=== PATIENT | male | born 1975 | race Two or more races ===

== ENCOUNTER 2016-07-14 13:26 | Emergency (ER) | payer OTHER ==
[2016-07-14] MEDS ORDERED: IBUPROFEN 200 MG TABLET ONE (16:47)
[2016-07-14] MEDS ORDERED: DOXYCYCLINE HYCLATE 100 MG TABLET ONE (17:42)
--- NOTE | 2016-07-14 17:47 | RAD ---
CHEST - 2 VIEWS COMPARISON: None. HISTORY: Cough and fever. FINDINGS: Views: Frontal and lateral chest Lungs: Patchy airspace opacities in the middle third and lower third of the left lung/left lower lobe. Heart and vessels: Normal Trachea and bronchi: Normal Mediastinum and campos: Normal Costophrenic sulci: Normal Chest wall and bones: Normal. Upper abdomen: Normal. IMPRESSION: Bronchopneumonia of the left lower lobe.
== END 2016-07-14 17:44 | disposition home or self-care (01) ==
LOC: ED 13:26
DX: J18.9 Pneumonia, unspecified organism (principal)
CPT/HCPCS: 87880; 71020; 87804; 99283 ×2; A9270 ×2